=== PATIENT | female | born 1980 | race Two or more races ===

== ENCOUNTER → 2017-03-07 | Day surgery (SDC) | payer OTHER ==
[~2017-03-07] MED LIST: CLOMID50 MG PO; NO MEDICATIONS; VIVELLE-DO.0375 MG/2 TOP
--- NOTE | ~2017-03-07 | OR ---
Unit #: [id number] #: [id number] Patient: ANDRES VUONG [id number] [address] [place], [place] [address] [id number] O MR#: [id number] NAME: ANDRES VUONG ROOM: Date of Procedure: 03/07/2017 Admission Date: 03/07/2017 Surgeon: Chi Gonzalez Jr., M.D. : 1980 Attending Physician: Chi Gonzalez Jr., M.D. Primary Care Physician: Primary Care Physician No OPERATIVE REPORT INDICATIONS FOR PROCEDURE The patient is a 36-year-old female, who recently presented to the office complaining of some recent rectal bleeding. This was of some concern to her and she is brought in this time for colonoscopy at her request. PREOPERATIVE DIAGNOSIS Rectal bleeding etiology? POSTOPERATIVE DIAGNOSES Rectal bleeding etiology? Noting some internal and external hemorrhoids as well as some melanosis coli. ANESTHESIA MAC anesthesia. PROCEDURE PERFORMED Flexible colonoscopy to the distal ileum. DESCRIPTION OF PROCEDURE The patient was positioned in Boyce position with left side down. After being given MAC anesthesia, digital rectal examination was performed, which revealed no palpable mass or tenderness. No blood or stool in the rectal ampulla. The Olympus colonoscope was advanced through the anal canal up the rectum and retroflexed down to the area of the anorectal region. There was some irritated internal hemorrhoids, which were not actively bleeding, but did appear they may have been recently bleeding. The scope was then straightened and advanced up in the rectosigmoid, in the sigmoid and descending colon areas, around the splenic flexure and the transverse colon, around hepatic flexure and ascending colon down in the area of the cecum. The light from the tip of the scope could be seen transilluminating through right lower quadrant abdominal wall area. The scope was advanced up the distal ileum approximately 10 to 15 inches. There was no evidence of any ileitis or inflammatory bowel disease. The scope was slowly removed. There were no tumors, polyps, cancer, or AVMs. No evidence of any colitis or acute diverticulitis. No evidence of any diverticulosis. There was some melanosis coli especially in the left colon and evidence of the internal hemorrhoids as noted above. The caliber of the colon appeared normal throughout without evidence of narrowing or obstruction. The scope was removed. The patient tolerated the procedure well and discharged in satisfactory condition. Unit #: [id number] #: [id number] Patient: ANDRES VUONG Dictated by... Chi Gonzalez Jr., M.D. JMB/alistair TD: 03/07/2017 15:11 JOB #: [id number] OPERATIVE REPORT Page 1 of 1 X Chi Gonzalez MD X PROCEDURE OPERATIVE NOTE
== END | disposition home or self-care (01) ==
LOC: COPS 11:36
DX: K62.5 Hemorrhage of anus and rectum (principal); K64.4 Residual hemorrhoidal skin tags; K64.8 Other hemorrhoids; K63.89 Other specified diseases of intestine; Z90.49 Acquired absence of other specified parts of digestive tract
CPT/HCPCS: 84703; J2250